=== PATIENT | female | born 1955 | race Caucasian/White ===

== ENCOUNTER 2023-09-27 20:56 | Emergency (ER) | payer OTHER ==
[~2023-09-27] VITALS: Ht 154.9 cm; Wt 99.8 kg
[2023-09-27 21:20] VITALS: BP 190/83; PULSE 78; RESP 17; TEMP 97.8; O2SAT 99
[2023-09-27] MEDS: KETOROLAC 30 MG/ML VIAL IVP ONE (22:41)
[2023-09-27] MEDS: PROPOFOL 200 MG/20 ML VIAL IV ONE (22:44)
[2023-09-27] MEDS ORDERED: NAPR-54 PO (23:36)
[2023-09-27 23:42] VITALS: BP 180/76; PULSE 70; RESP 16; TEMP 97.9; O2SAT 99
== END 2023-09-27 23:42 | disposition home or self-care (01) ==
LOC: MED 20:56
DX: S43.084A Other dislocation of right shoulder joint, initial encounter (principal); S21.131A Puncture wound without foreign body of right front wall of thorax without penetration into thoracic cavity, initial encounter; Z79.899 Other long term (current) drug therapy; G31.89 Other specified degenerative diseases of nervous system; W01.198A Fall on same level from slipping, tripping and stumbling with subsequent striking against other object, initial encounter; Y93.89 Activity, other specified; Y92.89 Other specified places as the place of occurrence of the external cause; Y99.8 Other external cause status
CPT/HCPCS: 23650; 70450; 73030; 96374; 99285; G0500; J1885; J2704; Q0092